=== PATIENT | male | born 1980 | race Caucasian/White ===

== ENCOUNTER 2024-04-11 10:42 | Emergency (ER) | payer OTHER ==
[~2024-04-11] VITALS: Ht 185.4 cm; Wt 102.1 kg
[2024-04-11 12:59] VITALS: BP 121/78; TEMP 98; O2SAT 98
== END 2024-04-11 13:17 | disposition home or self-care (01) ==
LOC: ER 10:42
DX: K21.9 Gastro-esophageal reflux disease without esophagitis (principal); S09.8XXA Other specified injuries of head, initial encounter; W22.8XXA Striking against or struck by other objects, initial encounter; Y93.89 Activity, other specified; Y92.89 Other specified places as the place of occurrence of the external cause; Y99.8 Other external cause status
CPT/HCPCS: 70450; A4606; A4663

== ENCOUNTER 2024-04-19 14:12 | Emergency (ER) | payer OTHER ==
[~2024-04-19] VITALS: Ht 185.4 cm; Wt 102.1 kg
[2024-04-19 14:20] VITALS: O2SAT 99
== END 2024-04-19 15:04 | disposition home or self-care (01) ==
LOC: ER 14:12
DX: Z13.89 Encounter for screening for other disorder (principal); K21.9 Gastro-esophageal reflux disease without esophagitis
CPT/HCPCS: A4606; A4663